=== PATIENT | female | born 1995 | race Caucasian/White ===

== ENCOUNTER 2019-11-23 20:18 | Emergency (ER) | payer MEDICAID, OTHER ==
[~2019-11-23] VITALS: Ht 162.6 cm; Wt 65.0 kg
[2019-11-23 20:25] VITALS: BP 138/70
[2019-11-23] MEDS ORDERED: ketorolac trometh inj. 60 MG/2 ML VIAL IM ONE (20:40)
[2019-11-23] MEDS ORDERED: ketorolac trometh. 30mg/ml inj. IM ONE (20:40)
[2019-11-23] MEDS ORDERED: HYDR-4384 PO (20:56)
[2019-11-23] MEDS ORDERED: HYDROcodone/acetaminophen 5mg/325mg tablet PO ONE (21:15)
== END 2019-11-23 21:39 | disposition home or self-care (01) ==
LOC: ER 20:19
DX: S52.501A Unspecified fracture of the lower end of right radius, initial encounter for closed fracture (principal); F12.90 Cannabis use, unspecified, uncomplicated; Z88.1 Allergy status to other antibiotic agents; W18.30XA Fall on same level, unspecified, initial encounter; Y93.9 Activity, unspecified; Y92.89 Other specified places as the place of occurrence of the external cause; Y99.9 Unspecified external cause status
CPT/HCPCS: 29125; 73090; 99284